=== PATIENT | male | born 1960 | race Caucasian/White ===

== ENCOUNTER 2018-09-25 01:22 | Emergency (ER) | payer MEDICAID, OTHER ==
[~2018-09-25] VITALS: Wt 60.6 kg
[2018-09-25] MEDS ORDERED: KETOROLAC 30 MG INJ IV STA (02:50)
[2018-09-25] MEDS ORDERED: SOD CHLORIDE 0.9% 1,000 ML IV STA (02:50)
[2018-09-25] MEDS ORDERED: DIAZEPAM 5 MG/ML SYG IV ONE (03:00)
--- NOTE | 2018-09-25 03:30 | ERD ---
ER Documentation Chief Complaint Chief Complaint C/O CP, BACK PAIN, SOB; HX OF STENT PLACEMENT HPI This is a 57-year-old homeless gentleman with a history of cardiac disease and a stent x1 who presents to the emergency room with back pain and chest pain. He states that he was carrying a heavy backpack. He states that he tripped and fell forward. He landed on the ground without hitting his head. Since then he is having throbbing bilateral paraspinal lumbar back pain he states that it radiates up into his chest and notes anterior chest wall tenderness that is worse with rotational movement. He states this is very different than his cardiac chest pain. He denies any pressure or exertional symptoms. The pain is 6 out of 10 currently. No pleuritic pain, leg swelling or recent travel. ROS All systems reviewed and are negative except as per history of present illness. Medications Home Meds Active Scripts Diazepam* (Valium*) 5 Mg Tablet, 5 MG PO Q8 PRN for MUSCLE SPASMS, #10 TAB Prov:KAREN MEZA MD 09/25/18 Ibuprofen* (Motrin*) 800 Mg Tab, 800 MG PO Q6H PRN for PAIN AND OR ELEVATED TEMP, #30 TAB Prov:KAREN MEZA MD 09/25/18 Allergies Allergies: Coded Allergies: Sulfa (Sulfonamide Antibiotics) (Unverified Allergy, Unknown, 09/25/18) PMhx/Soc Medical and Surgical Hx: pt denies Medical Hx, pt denies Surgical Hx Hx Cardiac Disorders: Yes (history of stent, htn) Hx Alcohol Use: No Hx Substance Use: No Hx Tobacco Use: No Smoking Status: Never smoker FmHx Family History: No diabetes Physical Exam Vitals Vital Signs Date Temp Pulse Resp B/P (MAP) Pulse Ox O2 O2 Flow FiO2 Time Delivery Rate 09/25/18 88 18 147/84 99 Room Air 04:20 (105) 09/25/18 97.2 129 20 157/98 99 01:24 (117) Physical Exam airway is intact Bilateral breath sounds Strong distal pulses No obvious deficits General: Disheveled, no significant distress Head: Normocephalic, atraumatic Eyes: Pupils equally reactive, EOM intact ENT: Moist mucous membranes Neck: Supple, no lymphadenopathy, No midline tenderness, deformities, step-offs to the cervical spine, full active and passive range of motion without midline pain. Respiratory: Lungs clear bilaterally, no distress, reproducible anterior chest wall tenderness, no crepitus Cardiovascular: RRR, no murmurs, rubs, or gallops Abdominal: Soft, non-tender, non-distended, no peritoneal signs, pelvis is stable : Deferred MSK: No edema, no unilateral swelling, 5/5 strength, no midline tenderness deformities or step-offs to the thoracolumbar spine, reproducible paraspinal lumbar back tenderness Neurologic: Alert and oriented, moving all extremities, normal speech, no focal weakness, no cerebellar signs Skin: No ecchymoses or bruising to the chest or abdomen Psych: Normal mood Result Diagram: 09/25/1831709/25/18317 Results 24 hrs Laboratory Tests Test 09/25/18 03:18 White Blood Count 7.2 10^3/ul Red Blood Count 4.92 10^6/ul Hemoglobin 13.8 g/dl Hematocrit 43.4 % Mean Corpuscular Volume 88.2 fl Mean Corpuscular Hemoglobin 28.0 pg Mean Corpuscular Hemoglobin Concent 31.8 g/dl Red Cell Distribution Width 13.8 % Platelet Count 309 10^3/UL Mean Platelet Volume 9.6 fl Immature Granulocytes % 0.400 % Neutrophils % 65.4 % Lymphocytes % 22.6 % Monocytes % 7.7 % Eosinophils % 2.6 % Basophils % 1.3 % Nucleated Red Blood Cells % 0.0 /100WBC Immature Granulocytes # 0.030 10^3/ul Neutrophils # 4.7 10^3/ul Lymphocytes # 1.6 10^3/ul Monocytes # 0.6 10^3/ul Eosinophils # 0.2 10^3/ul Basophils # 0.1 10^3/ul Nucleated Red Blood Cells # 0.0 10^3/ul Sodium Level 141 mmol/L Potassium Level 4.4 mmol/L Chloride Level 107 mmol/L Carbon Dioxide Level 26 mmol/L Anion Gap 8 Blood Urea Nitrogen 35 mg/dl Creatinine 1.20 mg/dl Est Glomerular Filtrat Rate mL/min > 60 mL/min Glucose Level 107 mg/dl Calcium Level 10.3 mg/dl Troponin I < 0.012 ng/ml Current Medications Medications Dose Sig/Rashaun Start Time Status Last (Trade) Ordered Route PRN Stop Time Admin Dose Reason Admin Sodium 1,000 ml @ Q1H STAT 09/25/18 DC 09/25/18 Chloride 1,000 mls/hr IV 02:50 09/25/18 03:23 03:49 Ketorolac 30 mg ONCE STAT 09/25/18 DC 09/25/18 Tromethamine IV 02:50 09/25/18 03:24 (Toradol) 02:52 Diazepam 5 mg ONCE ONCE 09/25/18 DC 09/25/18 (Valium) IV 03:00 09/25/18 03:24 03:01 Procedures/MDM EKG, MONITORS, & DIAGNOSTIC IMAGING: EKG: I reviewed and interpreted a 12-lead EKG. Rhythm: Normal sinus rhythm ST Changes: No contiguous ST segment elevations T waves: No contiguous T wave inversions Impression: No evidence of acute cardiac ischemia Chest x-ray: I reviewed and interpreted a 1 view of the chest Mediastinum: No enlargement Cardiac silhouette: No cardiomegaly Airspace: Clear lung harris bilaterally without evidence of pneumothorax Bones: No evidence of fracture LAB INTERPRETATION: I reviewed the laboratory testing and it shows no evidence of acute process MEDICAL DECISION MAKING: The patient's clinical exam history and presentation are very consistent with muscular skeletal injury secondary to recent fall. Patient has no head trauma or loss of consciousness. The patient does not meet high-risk criteria and based on NEXUS cervical spine criteria there is no indication for cervical spine imaging at this time. The patient does have chest pain and cardiac history but he states this feels very different than his cardiac disease. The patient has pain related to his fall. I do not believe this is consistent with ACS but given his history of do believe an EKG and troponin would be appropriate. Patient has no midline back tenderness to the thoracolumbar spine no indication for x-ray imaging. Likely muscle spasm. Patient is also very anxious. Anxiolysis and muscle relaxant medication would be appropriate. ER COURSE: * The patient was given pain medication in the form of NSAIDs and anxiolysis and muscle relaxant medication. He is resting comfortably and using a cellular phone. The patient is ambulatory. Negative troponin. Again low pretest probability for cardiac etiology, better alternative diagnosis and reproducib le symptoms. Patient is safe for discharge. CONSULTATION: None DISPOSITION PLAN: The patient does not have an identifiable emergent medical condition that warrants inpatient hospitalization at this time. The patient is deemed safe for discharge with outpatient follow-up. We discussed follow up with the patient's primary care doctor within 24 to 48 hours as needed. We also discussed return to the emergency room for worsening symptoms or worsening condition. Outpatient referral: None required Discharge Medications: Motrin, Valium Patient is homeless but refused homeless discharge resources. Departure Diagnosis: Primary Impression: Acute lumbar myofascial strain Encounter type: initial encounter Qualified Codes: S39.012A - Strain of muscle, fascia and tendon of lower back, initial encounter Additional Impression: Strain of chest wall Encounter type: initial encounter Qualified Codes: S29.011A - Strain of muscle and tendon of front wall of thorax, initial encounter Condition: Stable KAREN MEZA MD September 25, 2018 03:30
[2018-09-25] MEDS ORDERED: IBUP800T48 PO (04:05)
[2018-09-25] MEDS ORDERED: DIAZ5TAB PO (04:05)
[2018-09-25 04:20] VITALS: BP 147/84; PULSE 88; RESP 18
== END 2018-09-25 04:22 | disposition home or self-care (01) ==
LOC: E/R 01:22
DX: S39.012A Strain of muscle, fascia and tendon of lower back, initial encounter (principal); S29.011A Strain of muscle and tendon of front wall of thorax, initial encounter; I10 Essential (primary) hypertension; R07.89 Other chest pain; W01.0XXA Fall on same level from slipping, tripping and stumbling without subsequent striking against object, initial encounter; Y92.9 Unspecified place or not applicable; Z98.61 Coronary angioplasty status
CPT/HCPCS: 36415; 71045; 80048; 84484; 85025; 93005; 96374; 96375; J1885; J3360; J7030; Z7502